=== PATIENT | female | born 1965 | race Caucasian/White ===

== ENCOUNTER 2018-09-29 12:28 | Emergency (ER) | payer OTHER ==
[~2018-09-29] VITALS: Wt 79.1 kg
[~2018-09-29 12:28] MED LIST: APIX5TAB PO
[2018-09-29 12:32] VITALS: BP 173/83; PULSE 69; RESP 20
[2018-09-29] MEDS ORDERED: KETOROLAC 60 MG INJ IM STA (14:37)
[2018-09-29] MEDS ORDERED: HYDR-4011 PO (14:39)
[2018-09-29] MEDS ORDERED: MED4DP PO (14:39)
[2018-09-29] MEDS ORDERED: NAPR-985 PO (14:39)
[2018-09-29] MEDS ORDERED: DICL100G37 TOP (14:39)
--- NOTE | 2018-09-29 15:08 | ERD ---
ER Documentation Chief Complaint Chief Complaint left shoulder pain HPI 53-year-old female presenting with pain to her left arm. Patient states she has had pain for the last month. Denies any falls or injuries. Has not taken medications for pain. Denies any numbness or tingling. [id number]. Pain is worse with movement. Denies other medical problems. NKDA. Surgical history denies. Social history denies ROS All systems reviewed and are negative except as per history of present illness. Medications Home Meds Active Scripts Diclofenac Sodium* (Voltaren* Gel) 1% -100 Gm Gel, 2 GM TOP QID, #1 TUB Prov:LIANG LOVE PA-C 09/29/18 Naproxen* (Naprosyn*) 500 Mg Tablet, 500 MG PO BID PRN for PAIN AND/OR INFLAMMATION, #30 TAB Prov:LIANG LOVE PA-C 09/29/18 Hydrocodone/Acetaminophen ([place] 5-325 Tablet) 1 Each Tablet, 1 TAB PO Q6H PRN for PAIN, #7 TAB Prov:LIANG LOVE PA-C 09/29/18 Methylprednisolone* (Medrol* DOSE PACK) 4 Mg/Dose-Pack Tab.ds.pk, 4 MG PO . DIRECTED, #1 PACKET Prov:LIANG LOVE PA-C 09/29/18 Apixaban* (Eliquis*) 5 Mg Tablet, 5 MG PO BID for 30 Days, TAB Prov:JEREMY MANSFIELD 12/09/15 Apixaban* (Eliquis*) 5 Mg Tablet, 10 MG PO BID for 3 Days, TAB Prov:JEREMY MANSFIELD 12/09/15 Allergies Allergies: Coded Allergies: No Known Allergy (Unverified , 12/06/15) PMhx/Soc Medical and Surgical Hx: pt denies Medical Hx, pt denies Surgical Hx History of Surgery: No Anesthesia Reaction: No Hx Neurological Disorder: No Hx Respiratory Disorders: No Hx Cardiac Disorders: No Hx Psychiatric Problems: No Hx Miscellaneous Medical Probl: No Hx Alcohol Use: No Hx Substance Use: No Hx Tobacco Use: No Smoking Status: Never smoker FmHx Family History: No diabetes, No coronary disease, No other Physical Exam Vitals Vital Signs Date Temp Pulse Resp B/P (MAP) Pulse Ox O2 O2 Flow FiO2 Time Delivery Rate 09/29/18 98.0 69 20 173/83 98 12:32 (113) Physical Exam GENERAL: The patient is well-appearing, well-nourished, in no acute distress CHEST: Clear to auscultation bilaterally. There are no rales, wheezes or rhonchi. HEART: Regular rate and rhythm. No murmurs, clicks, rubs or gallops. EXTREMITIES: Tender to palpation over left scapula no deformity. Normal range of motion. Strength 5 out of 5. NEUROLOGIC: Alert and oriented. Cranial nerves II through XII intact. Motor strength in all 4 extremities with 5 out of 5 strength. Sensation grossly intact. Normal speech and gait. SKIN: There is no apparent rash or petechiae. The skin is warm and dry. Results 24 hrs Current Medications Medications Dose Sig/Marissa Start Time Status Last (Trade) Ordered Route PRN Stop Time Admin Dose Reason Admin Ketorolac 60 mg ONCE STAT 09/29/18 DC 09/29/18 Tromethamine IM 14:37 14:50 (Toradol) 09/29/18 14:38 Procedures/MDM ER course: Toradol given ED. MDM: 53 yr old female presenting with shoulder pain. Patient likely has nerve impingement. I have low suspicion for acute fracture dislocation. Patient is discharged with supportive medications. I do not feel that patient requires x- rays and patient is recommended follow-up with primary care for MRI. I believe patient may have rotator cuff injury versus impingement pain. All questions answered at discharge Departure Diagnosis: Primary Impression: Shoulder pain Condition: Stable Patient Instructions: Shoulder Pain (Uncertain Cause) Referrals: [facility] YOU HAVE RECEIVED A MEDICAL SCREENING EXAM AND THE RESULTS INDICATE THAT YOU DO NOT HAVE A CONDITION THAT REQUIRES URGENT TREATMENT IN THE EMERGENCY DEPARTMENT. FURTHER EVALUATION AND TREATMENT OF YOUR CONDITION CAN WAIT UNTIL YOU ARE SEEN IN YOUR DOCTORS OFFICE WITHIN THE NEXT 1-2 DAYS. IT IS YOUR RESPONSIBILITY TO MAKE AN APPOINTMENT FOR FOLOW-UP CARE. IF YOU HAVE A PRIMARY DOCTOR --you should call your primary doctor and schedule an appointment IF YOU DO NOT HAVE A PRIMARY DOCTOR YOU CAN CALL OUR PHYSICIAN REFERRAL HOTLINE AT IF YOU CAN NOT AFFORD TO SEE A PHYSICIAN YOU CAN CHOSE FROM THE FOLLOWING [facility] [id number] [facility] [address] [facility] [facility] [address] [facility] [address] [facility] [address] [facility]. [facility] [address] Additional Instructions: FOLLOW UP WITH YOUR PRIMARY CARE PHYSICIAN TOMORROW.Return to this facility if you are not improving as expected. LIANG LOVE PA-C Sep 29, 2018 15:08
== END 2018-09-29 15:14 | disposition home or self-care (01) ==
LOC: FTE 12:28
DX: M25.512 Pain in left shoulder (principal)
CPT/HCPCS: 96372; J1885; Z7502